=== PATIENT | male | born 1970 | race Caucasian/White ===

== ENCOUNTER → 2016-11-16 | Outpatient (CLI) | payer OTHER ==
[~2016-11-16] MED LIST: ASPI81TA85 PO; METF500T4; SIMV10TA2; TIZANIDINE; TOPA1TAB PO
--- NOTE | 2016-11-16 17:30 | REP ---
HISTORY: Pain. COMPARISON: 07/25/2015 The patient has had multiple surgical procedures. I have no details. The patient is unable to stand. The reconstructed anterior cruciate ligament is intact. There is magnetic susceptibility artifact seen in the distal femur proximal tibia from previous ACL reconstruction. There is truncation of the posterior horn of the medial meniscus likely postoperative in nature. There are no grade 3 signal changes. The anterior and posterior horns of the lateral meniscus are unchanged and appear to be within normal limits. The posterior cruciate ligament is intact. The quadriceps and patellar tendons are intact. The medial and lateral collateral ligaments are intact. The medial and lateral patellar retinaculum are intact. There is mild blistering of the patellar articular cartilage with mild thinning and irregularity of the medial and lateral compartmental articular cartilages. Note is again made of cystic degenerative change seen involving the proximal tibial metaphysis, status quo. There is no joint effusion or Rodríguez's cyst. There is no evidence of a soft tissue mass. IMPRESSION: 1. Postoperative changes as described above. 2. The reconstructed anterior cruciate ligament is intact. 3. Mild chondromalacia patella. 4. Other findings as described above. Signed by Thang Bauman DO 11/19/2016 04:40 P
== END ==
LOC: M RAD 12:38
PROVIDERS: ATTEND Orthopaedic Surgery
DX: S83.242D Other tear of medial meniscus, current injury, left knee, subsequent encounter (principal); W18.30XA Fall on same level, unspecified, initial encounter; Y92.009 Unspecified place in unspecified non-institutional (private) residence as the place of occurrence of the external cause

== ENCOUNTER 2017-01-01 12:13 | Emergency (ER) | payer OTHER ==
[~2017-01-01] VITALS: Ht 180.3 cm; Wt 125.9 kg
[2017-01-01] MEDS ORDERED: TOPA1TAB PO (12:24)
[2017-01-01] MEDS ORDERED: SIMV10TA2 (12:24)
[2017-01-01] MEDS ORDERED: METF500T4 (12:24)
[2017-01-01] MEDS ORDERED: ASPI81TA85 PO (12:24)
[2017-01-01] MEDS ORDERED: TIZANIDINE (12:24)
[2017-01-01] MEDS ORDERED: PERCOCET 5MG/325MG TAB PO ONE (12:45)
--- NOTE | 2017-01-01 13:00 | REP ---
CT cervical spine without contrast HISTORY: Trauma COMPARISON: None There is no acute fracture or subluxation. There is no disc bulge or herniation. The spinal canal and neural foramina are patent. The intervertebral discs and vertebral bodies are normal in height. IMPRESSION: There is no acute fracture or subluxation. Signed by Cassius Solano MD 01/01/2017 12:52 P
[2017-01-01] MEDS ORDERED: NAPR500T PO (13:15)
[2017-01-01] MEDS ORDERED: PERC5TAB12 PO (13:16)
[2017-01-01 13:26] VITALS: BP 122/84
== END 2017-01-01 13:30 | disposition home or self-care (01) ==
LOC: EDBD 12:13 → M ED 12:13
DX: S16.1XXA Strain of muscle, fascia and tendon at neck level, initial encounter (principal); V43.52XA Car driver injured in collision with other type car in traffic accident, initial encounter; Y92.410 Unspecified street and highway as the place of occurrence of the external cause; Y93.9 Activity, unspecified; Y99.9 Unspecified external cause status; Z79.82 Long term (current) use of aspirin; Z79.899 Other long term (current) drug therapy

== ENCOUNTER → 2018-05-21 | Outpatient (REF) | payer OTHER ==
[~2018-05-21] MED LIST changes: +NAPR-837 PO; +PERC5TAB12 PO
[2018-05-21 18:20] LABS: BASO # 0.1 10^3/uL (0.0-0.2); BASO % 0.8 % (0.0-1.0); EOS # 0.1 10^3/uL (0.0-0.50); EOS % 0.8 % (0.0-3.0); HEMATOCRIT 47.3 % (42.0-52.0); HEMOGLOBIN 16.7 g/dl (13.5-17.5); LYMPH # 2.4 10^3/uL (1.5-4.5); LYMPH % 26.9 % (24.0-44.0); MEAN CORPUSCULAR HEMOGLOBIN 31.9 pg (27.0-33.0); MEAN CORPUSCULAR HGB CONC 35.3 g/dl (32.0-36.5); MEAN CORPUSCULAR VOLUME 90.3 fl (80.0-96.0); MONO # 0.6 10^3/uL (0.0-0.8); MONO % 6.3 % (0.0-5.0); NEUTROPHILS # 5.7 10^3/uL (1.8-7.7); NEUTROPHILS % 64.2 % (36.0-66.0); PLATELET COUNT, AUTOMATED 218 10^3/uL (150-450); RED BLOOD COUNT 5.24 10^6/uL (4.30-6.10); WHITE BLOOD COUNT 8.9 10^3/uL (4.0-10.0)
[2018-05-21 18:27] LABS: C REACTIVE PROTEIN QUANTITATIV < 0.30 MG/DL (0.00-0.30); RHEUMATOID FACTOR QUANT < 10.0 IU/ML (<15.0); URIC ACID 5.7 MG/DL (3.5-7.2)
[2018-05-21 19:55] LABS: ERYTHROCYTE SEDIMENTATION RATE 2 mm/hr (0-15)
[2018-05-28 00:07] LABS: HLA-B27 Negative (.); Lyme Disease IgG/IgM Antibodie <0.91 ISR (0.00-0.90); Lyme Disease IgM Ab Quantitati <0.80 index (0.00-0.79)
== END ==
LOC: M LABDRAW1 17:02
PROVIDERS: ATTEND Physician Assistant
DX: M17.11 Unilateral primary osteoarthritis, right knee (principal)

== ENCOUNTER → 2018-10-27 | Outpatient (CLI) | payer OTHER ==
[~2018-10-27] MED LIST changes: +METF-791; -METF500T4
[2018-10-27 15:26] LABS: BASO # 0.1 10^3/uL (0.0-0.2); BASO % 0.8 % (0.0-1.0); EOS # 0.1 10^3/uL (0.0-0.5); EOS % 1.3 % (0.0-3.0); HEMATOCRIT 44.1 % (42.0-52.0); HEMOGLOBIN 15.5 g/dl (13.5-17.5); MEAN CORPUSCULAR HEMOGLOBIN 31.8 pg (27.0-33.0); MEAN CORPUSCULAR HGB CONC 35.1 g/dl (32.0-36.5); MEAN CORPUSCULAR VOLUME 90.6 fl (80.0-96.0); MONO # 0.4 10^3/uL (0.0-0.8); MONO % 6.7 % (0.0-5.0); NEUTROPHILS # 3.5 10^3/uL (1.5-8.5); NEUTROPHILS % 57.7 % (36.0-66.0); PLATELET COUNT, AUTOMATED 200 10^3/uL (150-450); RED BLOOD COUNT 4.87 10^6/uL (4.30-6.10); WHITE BLOOD COUNT 6.1 10^3/uL (4.0-10.0)
[2018-10-27 15:57] LABS: ALBUMIN 4.2 GM/DL (3.2-5.2); ALT/SGPT 46 U/L (12-78); BILIRUBIN,TOTAL 1.1 MG/DL (0.2-1.0); BLOOD UREA NITROGEN 13 MG/DL (7-18); C REACTIVE PROTEIN QUANTITATIV 0.46 MG/DL (0.00-0.30); CALCIUM LEVEL 9.2 MG/DL (8.5-10.1); CARBON DIOXIDE LEVEL 29 MEQ/L (21-32); CHLORIDE LEVEL 102 MEQ/L (98-107); CREATININE FOR GFR 1.02 MG/DL (0.70-1.30); GLOMERULAR FILTRATION RATE > 60.0 (>60); GLUCOSE, FASTING 213 MG/DL (70-100); RHEUMATOID FACTOR QUANT < 10.0 IU/ML (<15.0); SODIUM LEVEL 139 MEQ/L (136-145); TOTAL PROTEIN 6.7 GM/DL (6.4-8.2); URIC ACID 3.8 MG/DL (3.5-7.2)
[2018-10-27 16:18] LABS: ERYTHROCYTE SEDIMENTATION RATE 3 mm/hr (0-15)
--- NOTE | 2018-10-28 07:46 | REP ---
BILATERAL HAND SERIES: Eight views. HISTORY: Arthritis. FINDINGS: Four views of the right hand show overall normal mineralization. No erosive changes are seen. Joint spaces are preserved. Periarticular soft tissues are unremarkable. There is minimal spurring at the DIP joint of the small finger. No other spurring is seen. Four views of the left hand show overall normal mineralization as well. There is old post-traumatic deformity of the distal tuft of the small finger. There is a tiny metallic foreign body in the volar soft tissues at the distal phalanx of the index finger on the left. No erosive changes are seen. IMPRESSION: Old tiny metallic foreign body distal phalanx left index finger soft tissues. Old post-traumatic deformity distal phalanx small finger left hand. Minimal spurring DIP joint 5th digit right hand. No erosive changes. Electronically Signed by Carl Strong MD 10/28/2018 09:08 A
== END ==
LOC: M LAB 13:50
PROVIDERS: ATTEND Internal Medicine Rheumatology
DX: Z87.81 Personal history of (healed) traumatic fracture (principal); T15.01XA Foreign body in cornea, right eye, initial encounter; S60.552A Superficial foreign body of left hand, initial encounter; X58.XXXA Exposure to other specified factors, initial encounter; Y92.89 Other specified places as the place of occurrence of the external cause